=== PATIENT | male | born 1955 | race Caucasian/White ===

== ENCOUNTER 2018-01-09 00:54 | Inpatient (IN) | payer BC ==
[2018-01-08 15:47] LABS: INR 0.96
[~2018-01-09] VITALS: Ht 177.8 cm; Wt 81.2 kg
[2018-01-09] VITALS (16 sets, daily range): BP systolic 108–144; BP diastolic 57–99
[~2018-01-09 00:54] MED LIST: HYDR-2966 PO; MELO-205 PO; NIFE-15 PO
[2018-01-09] MEDS ORDERED: NORMOSOL R SOLN(*) 1000 ML BAG 1,000 ML IV PRN ×2 (06:00→11:35)
[2018-01-09] MEDS ORDERED: MIDAZOLAM 2 MG/2 ML VIAL IVP PRN (06:00)
[2018-01-09] MEDS ORDERED: ceFAZolin(*) 2GM/D5W 50ML 50 ML IVPB ONE (06:00)
[2018-01-09] MEDS ORDERED: FAMOTIDINE 20 MG TAB PO ONE (06:00)
[2018-01-09] MEDS ORDERED: PREGABALIN 150 MG CAPSULE PO ONE (06:00)
[2018-01-09] MEDS ORDERED: CELECOXIB 200 MG CAP PO ONE (06:00)
[2018-01-09] MEDS ORDERED: TRANEXAMIC AC 1000 MG/10ML SDV 1,000 MG in DEXTROSE 5% 50 ML BAG 50 ML IV ONE (06:00)
[2018-01-09] MEDS ORDERED: ACETAMINOPHEN 500 MG TAB PO ONE (06:00)
[2018-01-09] MEDS ORDERED: cloNIDine EPIDUR INJ 100MCG/ML 40 MCG, ROPIVACAINE 0.5% 20 ML VIAL 25 ML, EPINEPHrine H... INJ ONE (06:00)
[2018-01-09] MEDS ORDERED: LIDOCAINE/SOD BICARB 8.4% SYR ID ONE (06:00)
[2018-01-09] MEDS ORDERED: ROPIVACAINE 0.2% 400 MG/200ML 250 ML CONINFUS ONE (06:15)
[2018-01-09] MEDS ORDERED: PROPOFOL EMUL(*) 10MG/ML 20 ML 20 ML ONE (07:03)
[2018-01-09] MEDS ORDERED: ONDANSETRON 4 MG/2 ML VIAL ONE (07:03)
[2018-01-09] MEDS ORDERED: DEXAMETHASONE SOD 4 MG/ML VIAL ONE (07:03)
[2018-01-09] MEDS ORDERED: fentaNYL CITR 100 MCG/2 ML AMP ONE ×3 (07:03→12:16)
[2018-01-09] MEDS ORDERED: LIDOCAINE MPF 1% 5 ML VIAL ONE (07:03)
[2018-01-09] MEDS ORDERED: KETAMINE HCL 200 MG/20 ML MDV ONE (07:04)
[2018-01-09] MEDS ORDERED: HYDROmorphone HCL 2 MG/ML SDV ONE (08:16)
[2018-01-09] MEDS: ROPIVACAINE 0.2% 400 MG/200ML 250 ML CONINFUS ONE ×2 (08:25→11:23)
[2018-01-09] MEDS ORDERED: ROPIVACAINE 0.2% 20 ML VIAL ONE (10:47)
[2018-01-09] MEDS ORDERED: BISACODYL 10 MG SUPP PR PRN (11:35)
[2018-01-09] MEDS ORDERED: FLUSH 10 ML SYR IVP PRN (11:35)
[2018-01-09] MEDS ORDERED: PROMETHAZINE 25 MG/ML 1 ML AMP IVP PRN (11:35)
[2018-01-09] MEDS ORDERED: MORPHINE SULFATE 30 MG PCA IV PRN (11:35)
[2018-01-09] MEDS ORDERED: ZOLPIDEM TARTRATE 5 MG TAB PO PRN (11:35)
[2018-01-09] MEDS ORDERED: NALOXONE HCL 0.4 MG/ML VIAL IVP PRN (11:35)
[2018-01-09] MEDS ORDERED: ONDANSETRON 4 MG/2 ML VIAL IVP PRN (11:35)
[2018-01-09] MEDS ORDERED: MORPHINE 4 MG/ML SDV IVP PRN (11:40)
--- NOTE | 2018-01-09 11:50 | RADIOLOGY IMAGING REPORT ---
FACILITY: [facility] [place] PATIENT NAME: Ramón Osuna : 1955 MR: [id number] V: [id number] EXAM DATE: ORDERING PHYSICIAN: CARLOS BESS TECHNOLOGIST: Location: [facility] [place] Patient: Ramón Osuna : 1955 Visit/Account:[id number] Date of Sevice: 01/09/2018 KNEE LIMITED LEFT Indication: POST OP TOTAL KNEE Comparison: None. Findings: There are postoperative changes from left total knee arthroplasty. The femoral, patellar, and tibial components are in good alignment. There is no effusion. Impression: Postoperative changes left total knee arthroplasty. Report Dictated By: Anatoliy Dinh at 01/09/2018 11:45 AM Report E-Signed By: Anatoliy Dinh at 01/09/2018 11:46 AM WSN:[id number]
[2018-01-09] MEDS: KETOROLAC TROM 10MG TAB PO PRN (12:59)
[2018-01-09] MEDS: ACETAMINOPHEN 500 MG TAB PO SCH ×2 (13:00→20:34)
--- NOTE | 2018-01-09 13:05 | Hospitalist Consultation ---
History of Present Illness Requesting Physician Dr. Clemons Reason for Consult Hypertension Chief Complaint s/p left total knee replacement History of Present Illness He was admitted s/p left total knee replacement. It is reported the surgery went well and without complication. History Problems: (1) Hypertension Status: Chronic Home Meds Reported Medications Meloxicam (MELOXICAM) 7.5 Mg Tablet, 7.5 MG PO QDAY 01/02/18 Hydrochlorothiazide (HYDROCHLOROTHIAZIDE) 25 Mg Tablet, 1 TAB PO QDAY, TAB 01/02/18 Nifedipine (NIFEDIPINE ER) 30 Mg Tab.er.24, 30 MG PO QDAY 01/02/18 Allergies: Coded Allergies: No Known Drug Allergies (Unverified , 01/02/18) Patient History: FH: Parkinson's disease FATHER FH: arthritis MOTHER FH: epilepsy FATHER FH: heart disease MOTHER Hx Smoking: No Smoking Status: Never Smoker Caffeine Intake: Soda Caffeine/Cups Per Day: 2 per day Hx Alcohol Use: Yes Hx Substance Use Disorder: No Review of Systems All Systems Reviewed/Normal: Yes, Except as Noted Gastrointestinal: Nausea Musculoskeletal: Pain (left knee) Exam Vital Signs Vital Signs Date Time Temp Pulse Resp B/P (MAP) Pulse Ox O2 Delivery O2 Flow Rate FiO2 01/09/18 12:45 70 121/83 (96) 96 01/09/18 12:43 Nasal Cannula 2.0 01/09/18 12:35 97.7 12 General Appearance: No Acute Distress, Afebrile, Other (drowsy from sedation) Cardiovascular: Regular Rate and Rhythm Respiratory: No Respiratory Distress, Clear to Auscultation Extremities: No Edema Psych: Appropriate Mood & Affect Assessment and Plan Problems: (1) Status post total left knee replacement Status: Acute Assessment & Plan: Followed by Dr. Clemons. He will be placed on Aspirin 325mg for DVT prophylaxis. No CP/ CV issues. (2) Hypertension Status: Chronic Assessment & Plan: He is on chronic treatment with hydrochlorothiazide and Nifedipine. The Nifedipine has been restarted with hold parameters. Venous Thromboembolism Antithrombotics Is Pt On Any Antithrombotics?: No Exam Sepsis Risk: No Definite Risk SILVIA ESCOBEDO Jan 09, 2018 13:05
[2018-01-09] MEDS: ceFAZolin(*) 1 GM VIAL 1 GM in NS(*) 0.9% 100 ML ADDVANT BAG 100 ML IVPB SCH ×2 (15:04→22:29)
[2018-01-09] MEDS: oxyCODONE HCL 5 MG CAP PO PRN (17:24)
[2018-01-10] MEDS: oxyCODONE HCL 5 MG CAP PO PRN ×5 (00:20→22:40)
[2018-01-10 03:46] VITALS: BP 103/68
[2018-01-10] MEDS: ACETAMINOPHEN 500 MG TAB PO SCH ×3 (05:19→21:05)
[2018-01-10] MEDS: ceFAZolin(*) 1 GM VIAL 1 GM in NS(*) 0.9% 100 ML ADDVANT BAG 100 ML IVPB SCH (06:24)
[2018-01-10 07:30] VITALS: BP 121/72
[2018-01-10] MEDS: NIFEdipine XL 30 MG TABCR PO SCH (08:51)
[2018-01-10] MEDS: KETOROLAC TROM 10MG TAB PO PRN ×2 (08:52→17:30)
[2018-01-10] MEDS: ASPIRIN 325 MG TAB PO SCH (08:54)
--- NOTE | 2018-01-10 09:42 | Hospitalist Progress Note ---
Subjective Progress Notes Subjective He was admitted after total knee replacement. He had no acute events overnight. Patient Complains of: Cardiovascular: No: Chest Pain Respiratory: No: Shortness of Breath Physical Exam Vital Signs Date Time Temp Pulse Resp B/P (MAP) Pulse Ox O2 Delivery O2 Flow Rate FiO2 01/10/18 08:50 91 Room Air 01/10/18 07:30 98.3 74 18 121/72 (88) 01/10/18 03:46 1.0 Intake and Output 01/11/18 07:00 Intake Total 336 ml Balance 336 ml Intake Oral 236 ml IV Total 100 ml # Voids 1 General Appearance: Alert, Awake, No Acute Distress, Afebrile Neuro: No Gross deficits Cardiovascular: Regular Rate and Rhythm Respiratory: No Respiratory Distress, Clear to Auscultation GI: Soft and Non-Tender Psych: Alert & Oriented X3, Appropriate Mood & Affect Result Diagram: 01/10/18 0516 Assessment and Plan Problems: (1) Status post total left knee replacement Status: Acute Assessment & Plan: Followed by Dr. Clemons. He will be placed on Aspirin 325mg for DVT prophylaxis. No CP/ CV issues. (2) Hypertension Status: Chronic Assessment & Plan: He is on chronic treatment with hydrochlorothiazide and Nifedipine. The Nifedipine has been restarted with hold parameters. Exam Sepsis Risk: No Definite Risk SILVIA ESCOBEDO [employer] Jan 10, 2018 09:42
[2018-01-10 10:55] VITALS: BP 104/69
[2018-01-10 15:17] VITALS: BP 116/71
[2018-01-10 16:44] VITALS: Ht 177.8 cm; Wt 81.2 kg
[2018-01-10 20:36] VITALS: BP 114/70
[2018-01-10 23:14] VITALS: BP 119/66
[2018-01-11 02:39] VITALS: BP 111/71
[2018-01-11] MEDS: oxyCODONE HCL 5 MG CAP PO PRN ×4 (02:39→14:45)
[2018-01-11] MEDS: KETOROLAC TROM 10MG TAB PO PRN (03:01)
[2018-01-11] MEDS: ACETAMINOPHEN 500 MG TAB PO SCH ×3 (05:35→20:49)
[2018-01-11 08:18] VITALS: BP 132/79
[2018-01-11] MEDS: ASPIRIN 325 MG TAB PO SCH (08:40)
[2018-01-11] MEDS: NIFEdipine XL 30 MG TABCR PO SCH (09:00)
--- NOTE | 2018-01-11 11:37 | Hospitalist Progress Note ---
Subjective Progress Notes Subjective He was admitted s/p knee replacement. He had no acute events overnight. Patient Complains of: Cardiovascular: No: Chest Pain Respiratory: No: Shortness of Breath Physical Exam Vital Signs Date Time Temp Pulse Resp B/P (MAP) Pulse Ox O2 Delivery O2 Flow Rate FiO2 01/11/18 08:40 92 Room Air 1.0 01/11/18 08:18 98.5 86 12 132/79 (96) Intake and Output 01/12/18 01:00 Intake Total 160 ml Balance 160 ml Intake Oral 160 ml # Voids 2 General Appearance: Alert, Awake, No Acute Distress, Afebrile Neuro: No Gross deficits Cardiovascular: Regular Rate and Rhythm Respiratory: No Respiratory Distress, Clear to Auscultation Psych: Alert & Oriented X3, Appropriate Mood & Affect Result Diagram: 01/10/18 0516 Assessment and Plan Problems: (1) Status post total left knee replacement Status: Acute Assessment & Plan: Followed by Dr. Clemons. He will be placed on Aspirin 325mg for DVT prophylaxis. No CP/ CV issues. (2) Hypertension Status: Chronic Assessment & Plan: He is on chronic treatment with hydrochlorothiazide and Nifedipine. The Nifedipine has been restarted with hold parameters. Exam Sepsis Risk: No Definite Risk SILVIA ESCOBEDO [employer] Jan 11, 2018 11:37
[2018-01-11 13:52] VITALS: BP 132/76
[2018-01-11] MEDS: MAGNESIUM HYDROXIDE* 30ML UDCP PO PRN ×2 (14:00→19:44)
[2018-01-11 16:04] VITALS: BP 121/72
[2018-01-11 19:38] VITALS: BP 129/72
[2018-01-12 00:09] VITALS: BP 136/82
[2018-01-12] MEDS: oxyCODONE HCL 5 MG CAP PO PRN ×2 (00:40→10:31)
[2018-01-12 05:40] VITALS: BP 146/79
[2018-01-12] MEDS: ACETAMINOPHEN 500 MG TAB PO SCH (05:42)
[2018-01-12 07:21] VITALS: BP 121/75
[2018-01-12] MEDS ORDERED: OXYC-869 PO (08:06)
[2018-01-12] MEDS: NIFEdipine XL 30 MG TABCR PO SCH (09:00)
[2018-01-12] MEDS: ASPIRIN 325 MG TAB PO SCH (09:41)
--- NOTE | 2018-01-12 11:33 | Hospitalist Progress Note ---
Subjective Progress Notes Subjective He has no concerns this morning. He had no acute events overnight. Patient Complains of: Cardiovascular: No: Chest Pain Respiratory: No: Shortness of Breath Physical Exam Vital Signs Date Time Temp Pulse Resp B/P (MAP) Pulse Ox O2 Delivery O2 Flow Rate FiO2 01/12/18 07:21 89 Room Air 01/12/18 07:21 99.1 88 16 121/75 (90) 01/12/18 05:40 0.5 Intake and Output 01/13/18 00:59 Intake Total 800 ml Balance 800 ml Intake Oral 800 ml # Voids 1 General Appearance: Alert, Awake, No Acute Distress Neuro: No Gross deficits Cardiovascular: Regular Rate and Rhythm Respiratory: No Respiratory Distress, Clear to Auscultation Psych: Alert & Oriented X3, Appropriate Mood & Affect Result Diagram: 01/10/18 0516 Assessment and Plan Problems: (1) Status post total left knee replacement Status: Acute Assessment & Plan: Followed by Dr. Clemons. He will be placed on Aspirin 325mg for DVT prophylaxis. No CP/ CV issues. (2) Hypertension Status: Chronic Assessment & Plan: He is on chronic treatment with hydrochlorothiazide and Nifedipine. The Nifedipine has been restarted with hold parameters. Exam Sepsis Risk: No Definite Risk SILVIA ESCOBEDO [employer] Jan 12, 2018 11:33
[2018-01-12] MEDS ORDERED: ASPI-757 PO (11:35)
--- NOTE | 2018-01-12 14:35 | OPERATIVE REPORT 1 ---
EVENT DATE: January 09, 2018 SURGEON: Carlos Clemons MD ANESTHESIOLOGIST: Renny Amador M.D. ANESTHESIA: Left adductor indwelling block with general anesthetic. RAILROAD OPERATOR: JORDANA Dupont, AUDIOVISUAL EQUIPMENT OPERATOR PREOPERATIVE DIAGNOSIS Left knee degenerative joint disease with significant deformity of varus alignment, flexor contracture of at least 15 degrees and flexes to only 90 degrees. POSTOPERATIVE DIAGNOSIS Left knee degenerative joint disease with significant deformity of varus alignment, flexor contracture of at least 15 degrees and flexes to only 90 degrees. PROCEDURE PERFORMED Left total knee arthroplasty. INSTRUMENTATION MicroPort Medial-Pivot CS System with 7 femur, 14 mm CS insert, 10x38 symmetric patella, #7 revision tibia with short stem and 10 mm medial wedge. We also utilized two packages of [employer] [place] Cement and ZipLine Wound Closure System.Anesthesia gave 1 gram of IV tranexamic acid ten minutes prior to start and at the end of the implantation. We injected the quad musculature with 50 mL of our standard ropivacaine/Toradol cocktail. OPERATION The patient received appropriate preoperative antibiotic and was brought to the operating room (OR), where Dr. Amador performed left indwelling adductor canal catheter and general anesthesia. Left thigh tourniquet was placed. The left lower extremity was prepped and draped in the usual sterile fashion. Tourniquet was not used. A midline incision was made followed by medial parapatellar arthrotomy. We dissected subperiosteally and along the medial tibial plateau to the level of the semimembranosus insertion. We noted significant eburnation in the posterior medial aspect of the medial plateau and significant spurring here. Fat pad was excised and patella released and everted. We noted significant spurring around the patella. There is eburnation on the distal medial femoral condyle and Grade 3 changes in the distal lateral femoral condyle. There are significant osteophytes around the femur and these are removed with rongeur. Significant osteophytes were noted in the notch, which were removed with curved osteotome. ACL was absent. PCL was released subperiosteally by Bovie. The knee was brought into the flexed position. Step- Cut drill was used to broach the femoral canal. We placed an intramedullary guide. We set our distal cut up for 12 mm to accommodate the significant flexor contracture. We made our distal cut. We then placed our distal femoral alignment guide, referencing of the anterior fringe, medial epicondyles and posterior condyles. We sized the femur to a #5 and drilled 3-degree external rotation holes and placed our 4-in-1 cutting block. We placed Z retractors and made our four cuts. The tibia was brought anterior to the femur with appropriate retractors, which was still difficult at this point secondary to flexor contracture in the capsule as well as posterior osteophytes. We placed our intramedullary tibial guide and referenced 10 mm off the least involved lateral tibial plateau. We placed our cutting jig. We made our tibial cut. We then replaced the intramedullary guide and set up for wedge cut as we still had significant bone deficit medially. We assessed this for a 10 mm cut. We pinned the block into place and made our tibial cut medially. We then removed the stump of the PCL. We removed the stump of the lateral meniscus and medial meniscus by Bovie. Significant osteophytes were removed at the posterior tibial plateau by rongeur and the posterior condyles of the femur with curved osteotome. There were loose bodies noted in both of these compartments, which were also removed. Capsule was elevated with Justice elevator as well as the gastroc insertion to account for the flexor contracture. We then placed our trial tibial base plate with the wedge, referencing for the previous rotation. We then placed our 10 mm insert and the 7 mm femur. We excised the tibia to 7 with 30 mm medial wedge. We noted that we still had difficulty getting into full extension so we released the IT band and still had trouble as we still had some bumps so we released the popliteus tendon. We were able to achieve full flexion but then we had to move up to 12 and then 14 mm in flexion to get satisfactory anterior drawer, varus and valgus stress. The knee was brought out into full extension and patella was cut down to 8 mm to accommodate a 10x38 symmetric patella and the peg hole guides positioned inferiorly medially. We drilled the peg holes. This accepted the patella. We then drilled for femoral pegs, which were then placed. We cut for trochlea chip, which was placed. We noted that prior to trialing of the tibia we had set up our guide and ream for our stem and punched for our keyhole. At this point, we assessed the track and patella, which was satisfactory. We could achieve full extension. The knee was stable to varus and valgus stress from 0 to 90 degrees. We were only able to get him to about 115-120 degrees and the quads started becoming tight. At 90 degrees, he did not subluxate anteriorly and anterior drawer was present. We then removed the femur, trial tibia, patella and tibia. We copiously irrigated with pulse lavage. We mixed two packages of [employer] [place] [employer] Cement. We drilled the medial tibial plateau with 1.5 mm drill bit to accommodate the sclerosis that was still present medially. We then injected 10 mL of our cocktail in the posterior capsule and placed the knee in appropriate position to start our splinting. We assembled our revision tibial baseplate with stem and 10 mm medial wedge and we then cemented this into place. We placed our 14 mm CS insert and our #7 femur. Excess cement was removed. The knee was brought into full extension with axial compression while we cemented the patella. At 15 minutes, the cement had hardened. Once again, we had the aforementioned range of motion. We copiously irrigated by pulse lavage. We injected the quads with the remaining 40 mL of our cocktail. We placed the knee in 30 degrees of flexion and closed the arthrotomy with #1 Vicryl in figure -of-eight suture fashion followed by 2-0 Vicryl for the subcutaneous tissues and at 45 degrees a ZipLine Wound Closure System. A compressive dressing was applied. The patient was extubated and taken to recovery in stable condition. Hospitalist team will be consulted for medical management and anticoagulation. PT for rehabilitation. <Electronically signed by CARLOS CLEMONS MD> D/ [id number] LYNNE/MERRILL CC: [facility]; CARLOS CLEMONS MD MTDD
== END 2018-01-12 11:02 | disposition home or self-care (01) | DRG 470 ==
LOC: OR 00:54 → INTOOBSV 12:35 → MED 12:35 → OBSVTOIN 12:35
PROVIDERS: ADMIT Orthopaedic Surgery; ATTEND Orthopaedic Surgery
PROC: 0SRD0J9 Replacement of Left Knee Joint with Synthetic Substitute, Cemented, Open Approach (ICD-10-PCS; principal; 2018-01-09 07:13)
DX: M17.12 Unilateral primary osteoarthritis, left knee (principal); M21.162 Varus deformity, not elsewhere classified, left knee; I10 Essential (primary) hypertension; M21.262 Flexion deformity, left knee; K21.9 Gastro-esophageal reflux disease without esophagitis
CPT/HCPCS: 36415; 76942; 85014; 85018; 85610; 86850; 86900; 86901; 97161; C1713; C1776; J0171; J0690; J0735; J1100; J1170; J1885; J2001; J2250; J2405; J2704; J2795; J3010; J3490; J7050; J7060